=== PATIENT | female | born 1935 | race Caucasian/White ===

== ENCOUNTER 2018-09-06 12:56 | Emergency (ER) | payer MEDICARE ==
[2018-09-06 13:06] VITALS: BP 137/76
[2018-09-06 13:39] LABS: BASOPHILS # (AUTO) 0.02 x10^3/uL (0-0.1); BASOPHILS % (AUTO) 0 % (0-1); EOSINOPHILS # (AUTO) 0.14 x10^3/uL (0-0.4); EOSINOPHILS % (AUTO) 2 % (1-7); LYMPHOCYTES # (AUTO) 1.12 x10^3/uL (1-3.4); LYMPHOCYTES % (AUTO) 19 % (22-44); MD NO; MEAN CORPUSCULAR HGB CONC 33.9 g/dL (32.4-35.8); MEAN CORPUSCULAR VOLUME 91.3 fL (80-100); MEAN PLATELET VOLUME 6.8 fL (7.4-10.4); MONOCYTES # (AUTO) 0.47 x10^3/uL (0.2-0.8); MONOCYTES % (AUTO) 8 % (2-9); NEUTROPHILS # (AUTO) 4.31 x10^3/uL (1.8-6.8); NEUTROPHILS % (AUTO) 71 % (42-75); PLATELET COUNT 287 x10^3/uL (130-400); RED BLOOD COUNT 5.06 x10^6/uL (3.82-5.3); RED CELL DISTRIBUTION WIDTH 13.6 % (9.6-15.2)
[2018-09-06 13:42] LABS: ALBUMIN 4.1 g/dL (3.4-5.0); ANION GAP 8 mmol/L (5-15); CALCIUM 9.3 mg/dL (8.5-10.1); CHLORIDE 101 mmol/L (98-107); CREATININE 1.21 mg/dL (0.55-1.02)
[2018-09-06 13:44] LABS: SALICYLATE LEVEL < 1.7 mg/dL (2.8-20.0)
[2018-09-06] MEDS ORDERED: LORazepam 2 MG/ML, 1ML ONE (13:55)
[2018-09-06] MEDS ORDERED: LORazepam 2 MG/ML, 1ML IM ONE (14:00)
[2018-09-06 14:05] LABS: CULTURE INDICATED? YES; MICROSCOPIC AUTO
--- NOTE | 2018-09-06 14:20 | NUR ---
ROOM SECURED, URINE COLLECTED/SENT TO LAB. PT AND FAMILY UPDATED ON POC. MED GIVEN PER ERP ORDER. SITTER AT DOORWAY.
--- NOTE | 2018-09-06 14:23 | NUR ---
ONE BELONGING BAG PLACED IN LOCKER.
[2018-09-06 14:24] LABS: AMPHETAMINE SCREEN, URINE Negative (Negative); BARBITURATE SCREEN, URINE Negative (Negative); BENZODIAZEPINE SCREEN, URINE Negative (Negative); CANNABINOID SCREEN, URINE Negative (Negative); COCAINE SCREEN, URINE Negative (Negative); METHADONE SCREEN, URINE Negative (Negative); OPIATE SCREEN, URINE Negative (Negative)
--- NOTE | 2018-09-06 14:51 | NUR ---
report from isaiah aquino
--- NOTE | 2018-09-06 15:05 | NUR ---
ROOM SECURED. PT AND FAMILY UPDATED ON POC. SITTER AT DOORWAY
[2018-09-06] MEDS ORDERED: LORA-445 PO (15:14)
--- NOTE | 2018-09-06 15:15 | NUR ---
MED REC COMPLETED. REVIEW OF CHART. PT TO BE EVALUATED FOR 3E. REPORT TO PASTORA HOBBS.
--- NOTE | 2018-09-06 15:20 | NUR ---
3E PROVIDER AT BEDSIDE
--- NOTE | 2018-09-06 16:36 | NUR ---
REPORT TO OBED ON 3E BED READY ON 3E 390-BED 1
--- NOTE | 2018-09-06 16:36 | NUR ---
ROOM SECURED. PT AND FAMILY UPDATED ON POC. SITTER AT DOORWAY
[2018-09-06] MEDS ORDERED: LOSA25TA25 PO (17:32)
[2018-09-06] MEDS ORDERED: FLUV50TA2 PO (17:34)
[2018-09-06] MEDS ORDERED: BREX4TAB PO (17:37)
[2018-09-06] MEDS ORDERED: QUET50TA5 PO (17:37)
[2018-09-06] MEDS ORDERED: AMLO-150 PO (17:37)
== END 2018-09-06 17:03 ==
LOC: ED 16:19
DX: F32.9 Major depressive disorder, single episode, unspecified (principal); F41.1 Generalized anxiety disorder
CPT/HCPCS: 36415; 80048; 80307; 81001; 82040; 85025; 87086; 96372; 99285; J2060; 99284

== ENCOUNTER 2018-09-06 16:22 | Inpatient (IN) | payer MEDICARE ==
[~2018-09-06] VITALS: Ht 160 cm; Wt 60.8 kg
[~2018-09-06 16:22] MED LIST: LORA-445 PO
[2018-09-06] MEDS ORDERED: BISACODYL 10 MG SUPP PR PRN (16:30)
[2018-09-06] MEDS ORDERED: ONDANSETRON ODT 4 MG PO PRN (16:30)
[2018-09-06 16:43] VITALS: BP 157/80
[2018-09-06 17:20] VITALS: BP 157/80
[2018-09-06] MEDS ORDERED: PLEASE ENTER HEIGHT AND WEIGHT MC SCH (17:30)
[2018-09-06] MEDS ORDERED: LOSA25TA25 PO (17:32)
[2018-09-06] MEDS ORDERED: FLUV50TA2 PO (17:34)
[2018-09-06] MEDS ORDERED: BREX4TAB PO (17:37)
[2018-09-06] MEDS ORDERED: QUET50TA5 PO (17:37)
[2018-09-06] MEDS ORDERED: AMLO-150 PO (17:37)
[2018-09-06 18:19] LABS: CHOL/HDL RATIO 4.3; FREE T4 (FREE THYROXINE) 0.91 ng/dL (0.76-1.46); LDL/HDL RATIO 2.7 (0.5-3.0); THYROID STIMULATING HORMONE 0.858 mIU/L (0.358-3.740)
[2018-09-06 19:39] VITALS: BP 111/62
[2018-09-06] MEDS ORDERED: FLUVOXAMINE 50MG TABLET PO SCH (21:00)
[2018-09-06] MEDS ORDERED: AMLODIPINE 5 MG TABLET PO SCH (21:00)
[2018-09-06] MEDS: QUETIAPINE 25MG TABLET PO SCH (21:16)
[2018-09-06] MEDS: BUSPIRONE 5 MG TABLET PO SCH (21:16)
[2018-09-07 07:28] VITALS: BP 127/75
[2018-09-07] MEDS: BUSPIRONE 5 MG TABLET PO SCH ×2 (08:02→20:48)
[2018-09-07] MEDS ORDERED: LOSARTAN 25MG TABLET PO SCH ×2 (09:00→11:00)
[2018-09-07] MEDS ORDERED: LORazepam 0.5MG TABLET PO PRN (10:00)
[2018-09-07 10:45] VITALS: BP 155/73
[2018-09-07] MEDS ORDERED: AMLODIPINE 5 MG TABLET PO SCH (11:00)
[2018-09-07] MEDS ORDERED: LOPERAMIDE 1 MG/5 ML, 10ML UDC PO PRN (19:00)
[2018-09-07 19:43] VITALS: BP 112/64
[2018-09-07] MEDS: FLUVOXAMINE 50MG TABLET PO SCH (20:47)
[2018-09-07] MEDS: AMLODIPINE 5 MG TABLET PO SCH (20:48)
[2018-09-07] MEDS: QUETIAPINE 25MG TABLET PO SCH (20:49)
[2018-09-07] MEDS: SIMVASTATIN 20 MG TABLET PO SCH (20:49)
[2018-09-07] MEDS: CALCIUM CARBONATE 500 MG TAB.CHEW PO PRN (20:57)
[2018-09-07] MEDS ORDERED: CALCIUM CARBONATE 500 MG TAB.CHEW PO SCH (21:00)
[2018-09-08 06:49] LABS: ALBUMIN 3.3 g/dL (3.4-5.0); ANION GAP 5 mmol/L (5-15); CALCIUM 8.9 mg/dL (8.5-10.1); CHLORIDE 103 mmol/L (98-107)
[2018-09-08 06:53] LABS: ALANINE AMINOTRANSFERASE 45 U/L (12-78); ALKALINE PHOSPHATASE 64 U/L (45-117); BILIRUBIN,TOTAL 0.6 mg/dL (0.2-1.0); CREATININE 1.17 mg/dL (0.55-1.02); TOTAL PROTEIN 6.5 g/dL (6.4-8.2)
[2018-09-08 07:15] VITALS: BP 118/70
[2018-09-08] MEDS ORDERED: SODIUM CHLORIDE 0.9% 1,000 ML IV ONE (07:30)
[2018-09-08] MEDS: LOSARTAN 25MG TABLET PO SCH (07:48)
[2018-09-08] MEDS: BUSPIRONE 5 MG TABLET PO SCH ×2 (07:48→20:39)
[2018-09-08] MEDS: CALCIUM CARBONATE 500 MG TAB.CHEW PO PRN ×2 (12:24→19:35)
[2018-09-08 19:48] VITALS: BP 117/72
[2018-09-08] MEDS: QUETIAPINE 25MG TABLET PO SCH (20:40)
[2018-09-08] MEDS: AMLODIPINE 5 MG TABLET PO SCH (20:40)
[2018-09-08] MEDS: FLUVOXAMINE 50MG TABLET PO SCH (20:40)
[2018-09-08] MEDS: SIMVASTATIN 20 MG TABLET PO SCH (20:41)
[2018-09-09 07:19] VITALS: BP 136/76
[2018-09-09] MEDS: LOSARTAN 25MG TABLET PO SCH (08:27)
[2018-09-09] MEDS: BUSPIRONE 5 MG TABLET PO SCH ×2 (08:27→22:04)
[2018-09-09] MEDS: CALCIUM CARBONATE 500 MG TAB.CHEW PO PRN ×2 (09:52→22:22)
[2018-09-09 10:07] LABS: ALBUMIN 3.5 g/dL (3.4-5.0); ANION GAP 7 mmol/L (5-15); CALCIUM 9.2 mg/dL (8.5-10.1); CHLORIDE 106 mmol/L (98-107)
[2018-09-09 10:10] LABS: ALANINE AMINOTRANSFERASE 46 U/L (12-78); ALKALINE PHOSPHATASE 66 U/L (45-117); BILIRUBIN,TOTAL 0.5 mg/dL (0.2-1.0); CREATININE 1.22 mg/dL (0.55-1.02); TOTAL PROTEIN 6.9 g/dL (6.4-8.2)
[2018-09-09] MEDS: SODIUM CHLORIDE 0.9% 1,000 ML IV SCH ×2 (11:34→22:00)
[2018-09-09 19:59] VITALS: BP 142/67
[2018-09-09] MEDS: FLUVOXAMINE 50MG TABLET PO SCH (22:03)
[2018-09-09] MEDS: AMLODIPINE 5 MG TABLET PO SCH (22:03)
[2018-09-09] MEDS: QUETIAPINE 25MG TABLET PO SCH (22:04)
[2018-09-09] MEDS: SIMVASTATIN 20 MG TABLET PO SCH (22:04)
[2018-09-10 05:59] LABS: CHLORIDE 111 mmol/L (98-107)
[2018-09-10 06:10] LABS: ALANINE AMINOTRANSFERASE 37 U/L (12-78); ALBUMIN 3.1 g/dL (3.4-5.0); ALKALINE PHOSPHATASE 59 U/L (45-117); ANION GAP 5 mmol/L (5-15); CALCIUM 8.4 mg/dL (8.5-10.1); CREATININE 1.01 mg/dL (0.55-1.02); TOTAL PROTEIN 6.1 g/dL (6.4-8.2)
[2018-09-10 07:40] VITALS: BP 153/73
[2018-09-10] MEDS: LOSARTAN 25MG TABLET PO SCH (09:26)
[2018-09-10] MEDS: BUSPIRONE 5 MG TABLET PO SCH ×2 (09:27→21:30)
[2018-09-10] MEDS: CALCIUM CARBONATE 500 MG TAB.CHEW PO PRN ×2 (09:40→21:30)
[2018-09-10] MEDS: DOCUSATE 100 MG CAPSULE PO PRN (15:20)
[2018-09-10 19:48] VITALS: BP_SYST 103; BP_SYST 168; BP_DIAS 65; BP_DIAS 76
[2018-09-10] MEDS: QUETIAPINE 25MG TABLET PO SCH (21:30)
[2018-09-10] MEDS: FLUVOXAMINE 50MG TABLET PO SCH (21:31)
[2018-09-10] MEDS: SIMVASTATIN 20 MG TABLET PO SCH (21:31)
[2018-09-10] MEDS: AMLODIPINE 5 MG TABLET PO SCH (21:31)
[2018-09-11 07:24] VITALS: BP 131/72
[2018-09-11] MEDS: BUSPIRONE 5 MG TABLET PO SCH ×2 (09:17→20:02)
[2018-09-11] MEDS: LOSARTAN 25MG TABLET PO SCH (09:17)
[2018-09-11] MEDS: CALCIUM CARBONATE 500 MG TAB.CHEW PO PRN ×2 (10:13→18:32)
[2018-09-11 19:48] VITALS: BP 151/82
[2018-09-11] MEDS: FLUVOXAMINE 50MG TABLET PO SCH (20:02)
[2018-09-11] MEDS: QUETIAPINE 25MG TABLET PO SCH (20:02)
[2018-09-11] MEDS: AMLODIPINE 5 MG TABLET PO SCH (20:02)
[2018-09-11] MEDS: SIMVASTATIN 20 MG TABLET PO SCH (20:02)
[2018-09-12 07:16] VITALS: BP 130/72
[2018-09-12] MEDS: LOSARTAN 25MG TABLET PO SCH (08:38)
[2018-09-12] MEDS: BUSPIRONE 5 MG TABLET PO SCH (08:39)
[2018-09-12] MEDS: CALCIUM CARBONATE 500 MG TAB.CHEW PO PRN (13:43)
[2018-09-12 19:39] VITALS: BP 177/88
[2018-09-12] MEDS: BUSPIRONE 10 MG TABLET PO SCH (21:00)
[2018-09-12] MEDS: FLUVOXAMINE 50MG TABLET PO SCH (21:01)
[2018-09-12] MEDS: AMLODIPINE 5 MG TABLET PO SCH (21:01)
[2018-09-12] MEDS: QUETIAPINE 25MG TABLET PO SCH (21:02)
[2018-09-12] MEDS: SIMVASTATIN 20 MG TABLET PO SCH (21:03)
[2018-09-12 21:50] VITALS: BP 123/64
[2018-09-13 07:17] VITALS: BP 112/63
[2018-09-13] MEDS: LOSARTAN 25MG TABLET PO SCH (08:35)
[2018-09-13] MEDS: BUSPIRONE 10 MG TABLET PO SCH (08:35)
[2018-09-13] MEDS: CALCIUM CARBONATE 500 MG TAB.CHEW PO PRN ×2 (13:33→16:12)
[2018-09-13 20:00] VITALS: BP 153/75
[2018-09-13] MEDS ORDERED: BUSPIRONE 10 MG TABLET PO ONE (20:00)
[2018-09-13] MEDS: FLUVOXAMINE 50MG TABLET PO SCH (20:15)
[2018-09-13] MEDS: SIMVASTATIN 20 MG TABLET PO SCH (20:15)
[2018-09-13] MEDS: QUETIAPINE 25MG TABLET PO SCH (20:15)
[2018-09-13] MEDS: AMLODIPINE 5 MG TABLET PO SCH (20:15)
[2018-09-14 07:18] VITALS: BP 138/77
[2018-09-14] MEDS: BUSPIRONE 10 MG TABLET PO SCH ×3 (09:17→21:09)
[2018-09-14] MEDS: LOSARTAN 25MG TABLET PO SCH (09:17)
[2018-09-14] MEDS: CALCIUM CARBONATE 500 MG TAB.CHEW PO PRN (09:24)
[2018-09-14 19:34] VITALS: BP 170/80
[2018-09-14] MEDS: QUETIAPINE 25MG TABLET PO SCH (21:09)
[2018-09-14] MEDS: FLUVOXAMINE 50MG TABLET PO SCH (21:09)
[2018-09-14] MEDS: AMLODIPINE 5 MG TABLET PO SCH (21:09)
[2018-09-14] MEDS: SIMVASTATIN 20 MG TABLET PO SCH (21:09)
[2018-09-15 08:05] VITALS: BP 125/72
[2018-09-15] MEDS: BUSPIRONE 10 MG TABLET PO SCH ×3 (08:53→21:02)
[2018-09-15] MEDS: LOSARTAN 25MG TABLET PO SCH (08:53)
[2018-09-15 19:43] VITALS: BP 145/84
[2018-09-15] MEDS: AMLODIPINE 5 MG TABLET PO SCH (21:02)
[2018-09-15] MEDS: SIMVASTATIN 20 MG TABLET PO SCH (21:02)
[2018-09-15] MEDS: QUETIAPINE 25MG TABLET PO SCH (21:03)
[2018-09-15] MEDS: FLUVOXAMINE 50MG TABLET PO SCH (21:04)
[2018-09-16 07:41] VITALS: BP 138/80
[2018-09-16] MEDS: BUSPIRONE 10 MG TABLET PO SCH ×3 (08:54→20:48)
[2018-09-16] MEDS: LOSARTAN 25MG TABLET PO SCH (08:54)
[2018-09-16] MEDS: CALCIUM CARBONATE 500 MG TAB.CHEW PO PRN (14:42)
[2018-09-16 19:49] VITALS: BP 133/78
[2018-09-16] MEDS: SIMVASTATIN 20 MG TABLET PO SCH (20:48)
[2018-09-16] MEDS: AMLODIPINE 5 MG TABLET PO SCH (20:48)
[2018-09-16] MEDS: FLUVOXAMINE 50MG TABLET PO SCH (20:48)
[2018-09-16] MEDS: QUETIAPINE 25MG TABLET PO SCH (20:48)
[2018-09-17 07:26] VITALS: BP 121/66
[2018-09-17] MEDS: BUSPIRONE 10 MG TABLET PO SCH ×3 (09:08→20:41)
[2018-09-17] MEDS: LOSARTAN 25MG TABLET PO SCH (09:09)
[2018-09-17] MEDS: CALCIUM CARBONATE 500 MG TAB.CHEW PO PRN (18:10)
[2018-09-17 19:43] VITALS: BP 135/77
[2018-09-17] MEDS: AMLODIPINE 5 MG TABLET PO SCH (20:40)
[2018-09-17] MEDS: SIMVASTATIN 20 MG TABLET PO SCH (20:40)
[2018-09-17] MEDS: QUETIAPINE 25MG TABLET PO SCH (20:41)
[2018-09-17] MEDS: FLUVOXAMINE 50MG TABLET PO SCH (20:41)
[2018-09-18 07:27] VITALS: BP 132/67
[2018-09-18] MEDS: LOSARTAN 25MG TABLET PO SCH (08:43)
[2018-09-18] MEDS: BUSPIRONE 10 MG TABLET PO SCH ×3 (08:45→20:39)
[2018-09-18] MEDS: CALCIUM CARBONATE 500 MG TAB.CHEW PO PRN (10:07)
[2018-09-18 19:18] VITALS: BP 150/79
[2018-09-18] MEDS: FLUVOXAMINE 50MG TABLET PO SCH (20:38)
[2018-09-18] MEDS: AMLODIPINE 5 MG TABLET PO SCH (20:39)
[2018-09-18] MEDS: SIMVASTATIN 20 MG TABLET PO SCH (20:40)
[2018-09-18] MEDS: QUETIAPINE 25MG TABLET PO SCH (20:40)
[2018-09-18] MEDS: ACETAMINOPHEN 325 MG TABLET PO PRN (22:22)
[2018-09-19 07:10] VITALS: BP 133/81
[2018-09-19] MEDS: BUSPIRONE 10 MG TABLET PO SCH ×3 (07:55→20:17)
[2018-09-19] MEDS: LOSARTAN 25MG TABLET PO SCH (07:56)
[2018-09-19] MEDS: CALCIUM CARBONATE 500 MG TAB.CHEW PO PRN ×2 (10:19→20:17)
[2018-09-19 18:29] LABS: ALBUMIN 3.9 g/dL (3.4-5.0); ANION GAP 6 mmol/L (5-15); CALCIUM 9.1 mg/dL (8.5-10.1); CHLORIDE 100 mmol/L (98-107)
[2018-09-19 18:39] LABS: ALANINE AMINOTRANSFERASE 27 U/L (12-78); ALKALINE PHOSPHATASE 85 U/L (45-117); BILIRUBIN,TOTAL 0.8 mg/dL (0.2-1.0); CREATININE 1.15 mg/dL (0.55-1.02); TOTAL PROTEIN 7.7 g/dL (6.4-8.2)
[2018-09-19 19:23] VITALS: BP 146/85
[2018-09-19 19:27] LABS: MICROSCOPIC AUTO
[2018-09-19 19:29] LABS: CULTURE INDICATED? YES
[2018-09-19] MEDS: SIMVASTATIN 20 MG TABLET PO SCH (20:16)
[2018-09-19] MEDS: FLUVOXAMINE 50MG TABLET PO SCH (20:17)
[2018-09-19] MEDS: QUETIAPINE 25MG TABLET PO SCH (20:19)
[2018-09-20 06:40] LABS: CHOL/HDL RATIO 2.4; LDL/HDL RATIO 1.1 (0.5-3.0)
[2018-09-20 07:28] VITALS: BP 127/75
[2018-09-20] MEDS: LOSARTAN 25MG TABLET PO SCH (08:34)
[2018-09-20] MEDS: BUSPIRONE 10 MG TABLET PO SCH ×3 (08:34→21:01)
[2018-09-20] MEDS: CHLORTHALIDONE 25 MG TABLET PO SCH (08:49)
[2018-09-20] MEDS: CALCIUM CARBONATE 500 MG TAB.CHEW PO PRN ×2 (09:28→17:57)
[2018-09-20 19:20] VITALS: BP 133/82
[2018-09-20] MEDS: FLUVOXAMINE 50MG TABLET PO SCH (21:01)
[2018-09-20] MEDS: QUETIAPINE 25MG TABLET PO SCH (21:01)
[2018-09-20] MEDS: SIMVASTATIN 20 MG TABLET PO SCH (21:01)
[2018-09-21 07:09] VITALS: BP 131/83
[2018-09-21] MEDS: BUSPIRONE 10 MG TABLET PO SCH ×3 (08:19→20:17)
[2018-09-21] MEDS: LOSARTAN 25MG TABLET PO SCH (08:20)
[2018-09-21] MEDS: ACETAMINOPHEN 325 MG TABLET PO PRN (11:07)
[2018-09-21] MEDS: CALCIUM CARBONATE 500 MG TAB.CHEW PO PRN (19:25)
[2018-09-21 19:38] VITALS: BP 146/81
[2018-09-21] MEDS: SIMVASTATIN 20 MG TABLET PO SCH (20:17)
[2018-09-21] MEDS: QUETIAPINE 25MG TABLET PO SCH (20:17)
[2018-09-22 07:09] VITALS: BP 126/79
[2018-09-22] MEDS: ACETAMINOPHEN 325 MG TABLET PO PRN ×3 (07:43→20:48)
[2018-09-22] MEDS: BUSPIRONE 10 MG TABLET PO SCH ×3 (07:43→20:07)
[2018-09-22] MEDS: VENLAFAXINE 75 MG CAP ER PO SCH (07:43)
[2018-09-22] MEDS: LOSARTAN 25MG TABLET PO SCH (07:43)
[2018-09-22] MEDS: CHLORTHALIDONE 25 MG TABLET PO SCH (07:51)
[2018-09-22] MEDS: CALCIUM CARBONATE 500 MG TAB.CHEW PO PRN (19:38)
[2018-09-22 19:50] VITALS: BP 147/88
[2018-09-22] MEDS: SIMVASTATIN 20 MG TABLET PO SCH (20:07)
[2018-09-22] MEDS: DOCUSATE 100 MG CAPSULE PO PRN (20:07)
[2018-09-22] MEDS: QUETIAPINE 25MG TABLET PO SCH (20:07)
[2018-09-23 07:20] VITALS: BP 112/60
[2018-09-23] MEDS: BUSPIRONE 10 MG TABLET PO SCH ×3 (08:42→20:38)
[2018-09-23] MEDS: LOSARTAN 25MG TABLET PO SCH (08:42)
[2018-09-23] MEDS: VENLAFAXINE 75 MG CAP ER PO SCH (08:42)
[2018-09-23] MEDS: ACETAMINOPHEN 325 MG TABLET PO PRN ×2 (08:43→16:37)
[2018-09-23] MEDS: DOCUSATE 100 MG CAPSULE PO PRN ×2 (09:32→20:38)
[2018-09-23] MEDS: CALCIUM CARBONATE 500 MG TAB.CHEW PO PRN (14:34)
[2018-09-23 19:35] VITALS: BP 155/88
[2018-09-23] MEDS: QUETIAPINE 25MG TABLET PO SCH (20:38)
[2018-09-23] MEDS: SIMVASTATIN 20 MG TABLET PO SCH (20:38)
[2018-09-24 07:24] VITALS: BP 114/77
[2018-09-24 07:33] VITALS: BP 126/75
[2018-09-24] MEDS: BUSPIRONE 10 MG TABLET PO SCH ×3 (09:07→20:52)
[2018-09-24] MEDS: VENLAFAXINE 75 MG CAP ER PO SCH (09:07)
[2018-09-24] MEDS: DOCUSATE 100 MG CAPSULE PO PRN (09:07)
[2018-09-24] MEDS: ACETAMINOPHEN 325 MG TABLET PO PRN (09:08)
[2018-09-24] MEDS: LOSARTAN 25MG TABLET PO SCH (09:08)
[2018-09-24] MEDS: CHLORTHALIDONE 25 MG TABLET PO SCH (09:10)
[2018-09-24] MEDS: CALCIUM CARBONATE 500 MG TAB.CHEW PO PRN (15:39)
[2018-09-24 20:39] VITALS: BP 142/79
[2018-09-24] MEDS: QUETIAPINE 25MG TABLET PO SCH (20:48)
[2018-09-24] MEDS: SIMVASTATIN 20 MG TABLET PO SCH (20:48)
[2018-09-25 07:53] VITALS: BP 119/75
[2018-09-25] MEDS: POLYETHYLENE GLYCOL 17 GM PACKET PO PRN (09:38)
[2018-09-25] MEDS: VENLAFAXINE 75 MG CAP ER PO SCH (09:38)
[2018-09-25] MEDS: BUSPIRONE 10 MG TABLET PO SCH ×3 (09:38→20:03)
[2018-09-25] MEDS: LOSARTAN 25MG TABLET PO SCH (09:39)
[2018-09-25] MEDS: ACETAMINOPHEN 325 MG TABLET PO PRN ×2 (13:35→20:02)
[2018-09-25 19:33] VITALS: BP 123/78
[2018-09-25] MEDS: SIMVASTATIN 20 MG TABLET PO SCH (20:03)
[2018-09-25] MEDS: QUETIAPINE 25MG TABLET PO SCH (20:03)
[2018-09-26 07:21] VITALS: BP 142/84
[2018-09-26 08:06] LABS: ANION GAP 5 mmol/L (5-15); CALCIUM 9.1 mg/dL (8.5-10.1); CHLORIDE 97 mmol/L (98-107); CREATININE 1.11 mg/dL (0.55-1.02)
[2018-09-26] MEDS: CHLORTHALIDONE 25 MG TABLET PO SCH (09:24)
[2018-09-26] MEDS: BUSPIRONE 10 MG TABLET PO SCH ×3 (09:24→20:11)
[2018-09-26] MEDS: LOSARTAN 25MG TABLET PO SCH (09:25)
[2018-09-26] MEDS: VENLAFAXINE 75 MG CAP ER PO SCH (09:25)
[2018-09-26] MEDS: CALCIUM CARBONATE 500 MG TAB.CHEW PO PRN (10:57)
[2018-09-26 20:00] VITALS: BP 149/87
[2018-09-26] MEDS: SIMVASTATIN 20 MG TABLET PO SCH (20:11)
[2018-09-26] MEDS: ACETAMINOPHEN 325 MG TABLET PO PRN (20:11)
[2018-09-26] MEDS: QUETIAPINE 25MG TABLET PO SCH (20:12)
[2018-09-27 07:20] VITALS: BP 124/78
[2018-09-27] MEDS: BUSPIRONE 10 MG TABLET PO SCH ×3 (08:45→21:12)
[2018-09-27] MEDS: VENLAFAXINE 75 MG CAP ER PO SCH (08:46)
[2018-09-27] MEDS: LOSARTAN 25MG TABLET PO SCH (08:46)
[2018-09-27] MEDS: CALCIUM CARBONATE 500 MG TAB.CHEW PO PRN (12:26)
[2018-09-27 19:29] VITALS: BP 146/82
[2018-09-27] MEDS: SIMVASTATIN 20 MG TABLET PO SCH (21:12)
[2018-09-27] MEDS: QUETIAPINE 25MG TABLET PO SCH (21:12)
[2018-09-28 07:42] VITALS: BP 126/78
[2018-09-28] MEDS: BUSPIRONE 10 MG TABLET PO SCH ×3 (08:35→20:30)
[2018-09-28] MEDS: CHLORTHALIDONE 25 MG TABLET PO SCH (08:35)
[2018-09-28] MEDS: VENLAFAXINE 75 MG CAP ER PO SCH (08:36)
[2018-09-28] MEDS: LOSARTAN 25MG TABLET PO SCH (08:36)
[2018-09-28] MEDS: CALCIUM CARBONATE 500 MG TAB.CHEW PO PRN (13:50)
[2018-09-28 19:39] VITALS: BP 150/88
[2018-09-28] MEDS: QUETIAPINE 25MG TABLET PO SCH (20:29)
[2018-09-28] MEDS: POLYETHYLENE GLYCOL 17 GM PACKET PO PRN (20:30)
[2018-09-28] MEDS: SIMVASTATIN 20 MG TABLET PO SCH (20:30)
[2018-09-29 07:15] VITALS: BP 128/76
[2018-09-29] MEDS: BUSPIRONE 10 MG TABLET PO SCH ×3 (08:18→20:16)
[2018-09-29] MEDS: VENLAFAXINE 75 MG CAP ER PO SCH (08:18)
[2018-09-29] MEDS: LOSARTAN 25MG TABLET PO SCH (08:18)
[2018-09-29] MEDS: CALCIUM CARBONATE 500 MG TAB.CHEW PO PRN (13:46)
[2018-09-29 19:38] VITALS: BP 136/84
[2018-09-29] MEDS: SIMVASTATIN 20 MG TABLET PO SCH (20:16)
[2018-09-29] MEDS: QUETIAPINE 25MG TABLET PO SCH (20:16)
[2018-09-30 07:26] VITALS: BP 124/71
[2018-09-30] MEDS: BUSPIRONE 10 MG TABLET PO SCH ×3 (08:53→20:31)
[2018-09-30] MEDS: VENLAFAXINE 75 MG CAP ER PO SCH (08:54)
[2018-09-30] MEDS: LOSARTAN 25MG TABLET PO SCH (08:54)
[2018-09-30] MEDS: CHLORTHALIDONE 25 MG TABLET PO SCH (08:54)
[2018-09-30] MEDS: CALCIUM CARBONATE 500 MG TAB.CHEW PO PRN ×2 (14:24→20:00)
[2018-09-30 19:40] VITALS: BP 164/81
[2018-09-30] MEDS: SIMVASTATIN 20 MG TABLET PO SCH (20:31)
[2018-09-30] MEDS: QUETIAPINE 25MG TABLET PO SCH (20:32)
[2018-10-01 07:29] VITALS: BP 132/79
[2018-10-01] MEDS: LOSARTAN 25MG TABLET PO SCH (09:16)
[2018-10-01] MEDS: VENLAFAXINE 75 MG CAP ER PO SCH (09:16)
[2018-10-01] MEDS: BUSPIRONE 10 MG TABLET PO SCH ×3 (09:16→20:26)
[2018-10-01 19:43] VITALS: BP 138/86
[2018-10-01] MEDS: QUETIAPINE 25MG TABLET PO SCH (20:27)
[2018-10-01] MEDS: SIMVASTATIN 20 MG TABLET PO SCH (20:27)
[2018-10-02 07:22] VITALS: BP 127/82
[2018-10-02] MEDS: LOSARTAN 25MG TABLET PO SCH (08:14)
[2018-10-02] MEDS: BUSPIRONE 10 MG TABLET PO SCH ×3 (08:14→20:58)
[2018-10-02] MEDS: VENLAFAXINE 75 MG CAP ER PO SCH (08:14)
[2018-10-02] MEDS: CHLORTHALIDONE 25 MG TABLET PO SCH (08:15)
[2018-10-02] MEDS: CALCIUM CARBONATE 500 MG TAB.CHEW PO PRN (14:05)
[2018-10-02] MEDS ORDERED: VENL75CA6 PO (15:50)
[2018-10-02] MEDS ORDERED: CLON0.5T11 PO (15:50)
[2018-10-02] MEDS ORDERED: QUET25TA7 PO (15:50)
[2018-10-02] MEDS ORDERED: CHLO25TA PO (15:50)
[2018-10-02] MEDS ORDERED: LOSA25TA25 PO (15:50)
[2018-10-02] MEDS ORDERED: BUSP10TA PO (15:50)
[2018-10-02] MEDS ORDERED: SIMV20TA3 PO (15:50)
[2018-10-02 20:11] VITALS: BP 155/84
[2018-10-02] MEDS: SIMVASTATIN 20 MG TABLET PO SCH (20:57)
[2018-10-02] MEDS: QUETIAPINE 25MG TABLET PO SCH (20:58)
[2018-10-03 07:24] VITALS: BP 136/78
[2018-10-03] MEDS: VENLAFAXINE 75 MG CAP ER PO SCH (08:30)
[2018-10-03] MEDS: BUSPIRONE 10 MG TABLET PO SCH (08:30)
[2018-10-03] MEDS: LOSARTAN 25MG TABLET PO SCH (08:31)
== END 2018-10-03 10:57 | disposition home or self-care (01) | DRG 885 ==
LOC: 3E 17:00
PROVIDERS: ADMIT Psychiatry & Neurology Psychosomatic Medicine; ATTEND Psychiatry & Neurology Psychosomatic Medicine
DX: F33.2 Major depressive disorder, recurrent severe without psychotic features (principal); N17.0 Acute kidney failure with tubular necrosis; R45.851 Suicidal ideations; E78.5 Hyperlipidemia, unspecified; F41.1 Generalized anxiety disorder; G47.00 Insomnia, unspecified; I10 Essential (primary) hypertension; I25.10 Atherosclerotic heart disease of native coronary artery without angina pectoris; Z80.1 Family history of malignant neoplasm of trachea, bronchus and lung; Z79.899 Other long term (current) drug therapy
CPT/HCPCS: 36415; 71045; 80048; 80053; 80061; 80307; 81001; 82040; 82140; 82607; 83880; 84439; 84443; 85025; 86592; 87086; 93005; 96372; 99284; 99285; Q0162; 92522-GN; J2060; J7030